=== PATIENT | female | born 1995 | race Caucasian/White ===

== ENCOUNTER → 2022-07-19 | Outpatient (CLI) | payer OTHER ==
--- NOTE | 2022-07-26 03:25 | HM ---
HOLTER MONITOR REPORT A 72-hour Holter. There was no diary provided with the recordings. It is unclear if the patient had any symptoms. Predominant rhythm appears to be sinus with a heart rate ranging from 48 to 150 beats per minute with average heart rate of 79 beats per minute. Isolated ventricular ectopy was seen quite frequently. There were also rare couplets seen. The PVC burden according to the computer is 9%. Sinus rhythm and sinus tachycardia are the predominant findings. There is also some evidence of PACs as well without any significant runs of SVT. FINAL IMPRESSION: Predominant rhythm is sinus with sinus tachycardia. Average heart rate is 79 beats per minute. Frequent isolated PVCs, rare couplets. PVC burden is about 9%. No evidence of any significant bradyarrhythmia. No diary was provided. MMODL / IJN: [id number] /
== END | disposition home or self-care (01) ==
LOC: RADECHMAIN 12:43
PROVIDERS: ATTEND Family Medicine
DX: I49.9 Cardiac arrhythmia, unspecified (principal)
CPT/HCPCS: 93225; 93226